=== PATIENT | male | born 1985 | race Caucasian/White ===

== ENCOUNTER → 2017-11-12 | Outpatient (CLI) | payer MEDICARE, MEDICAID ==
--- NOTE | 2017-11-15 09:04 | RADIOLOGY IMAGING REPORT ---
FACILITY: [facility] [place] PATIENT NAME: KITA MAYNARD : [id number] MR: [id number] V: [id number] EXAM DATE: ORDERING PHYSICIAN: EMELY WASHINGTON TECHNOLOGIST: Chino Lyons EXAMINATION:TWO-DIMENSIONAL ECHOCARDIOGRAPH REASON:CARDIOMYOPATHY 2D Measurements (normal values in centimeters) LV endLV endRV endVent.LV PostAorticLeftPercent DiastolicSystolicDiastolicSeptumWallRootAtriumShortening (3.5-5.7)(0.9-2.6)(0.6-1.1)(0.6-1.1)(2.0-3.7)(1.9-4.0)(25-35%) [id number]% STROKE VOLUME: 33ml ESTIMATED EJECTION FRACTION:34% PARASTERNAL LONG AXIS: Left ventricular systolic function does appear to be decreased. There appears to be some generalized hypokinesis possibly some akinesis along a portion of the interventricular septum. The right ventricle TAPSE was measured at 1.5 which is slightly decreased indicating some decrease in right ventricular function. The aortic valve & mitral valve both appear to open normally. Color examination of the valves reveals a trace of mitral insufficiency. PARASTERNAL SHORT AXIS: Again decreased left ventricular function. Generalized hypokinesis but also akinesis along the interventricular septum. Aortic valve is trileaflet in configuration & appears to open normally. Tricuspid valve also appears to open normally. There is a trace of tricuspid insufficiency. The tricuspid regurgitation Vmax measured 1.8m/sec. Pulmonic valve was not well seen but no abnormalities were noted. APICAL FOUR AND TWO CHAMBER: Again significantly decreased left ventricular systolic function with akinesis along the interventricular septum & hypokinesis along the other jonas. Aortic valve area & mitral valve area both measure within normal ranges at 2.6 & 3.0cm2 respectively. The left atrial & right atrial volumes are measured within normal ranges at 11 & 9ml/m2. SUBCOSTAL VIEW: No pericardial effusion was noted. No atrioseptal or ventriculoseptal defects were appreciated. Definity contrast was used which shows generalized hypokinesis & some akinesis along the interventricular septum. No thrombi were noted. There is hypokinesis of the apex as well. Doppler examination of the mitral valve in diastole does reveal the A wave > E wave. OVERALL IMPRESSION: 1. Significantly decreased left ventricular ejection of approximately 34% with generalized hypokinesis but also an area of akinesis along a portion of the interventricular septum and possibly a small portion of the apex of the left ventricle as well. Definity contrast was used. No thrombi were noted in the left ventricle. 2. Right ventricle is at the upper range of normal in size with a decrease in TAPSE suggesting some decrease in right ventricular function. 3. A Grade 1/4 decrease in diastolic function. 4. There are normal chamber sizes except for the right ventricle which is borderline enlarged. 5. A trileaflet aortic valve but no abnormalities. 6. A trace of mitral & tricuspid insufficiency with estimated right ventricular systolic pressures within normal ranges at 16mm Hg. Dictated by: Dionne Riggs M.D. on 11/12/2017 at 15:26 Transcribed by: LAVELLE on 11/15/2017 at 8:38 Approved by: Dionne Riggs M.D. on 11/15/2017 at 9:02 [facility]
== END ==
LOC: RAD 09:24
PROVIDERS: ATTEND Internal Medicine
DX: Q21.0 Ventricular septal defect (principal); R93.1 Abnormal findings on diagnostic imaging of heart and coronary circulation; I50.30 Unspecified diastolic (congestive) heart failure; I51.7 Cardiomegaly; I34.0 Nonrheumatic mitral (valve) insufficiency; I07.1 Rheumatic tricuspid insufficiency
CPT/HCPCS: C8929; Q9957